=== PATIENT | female | born 1975 | race Caucasian/White ===

== ENCOUNTER 2022-12-02 14:31 | Emergency (ER) | payer MEDICAID, SELFPAY ==
[2022-12-02 14:32] VITALS: BP 148/94; PULSE 93; RESP 20; TEMP 36.7; O2SAT 99; BMI 17.2
--- NOTE | 2022-12-02 14:58 | EXP.UTC ---
Discharge Plan Disposition Patient Disposition: Still a Patient Prescriptions Prescriptions: No Action venlafaxine 75 MG Cap.Er.24h 75 mg PO DAILY cephalexin 500 MG capsule 500 mg PO QID Qty: 40 0RF Referrals Follow up/Referrals: Provider,Referral, [Primary Care Provider] - See instructions Instructions Patient Instructions: DI for Urinary Tract Infection (UTI), DI for Urinary Tract Infection in Children Discharge ED Provider: Nicole Garces [facility] HPI <Becky Stewart APRN - Last Filed: 12/02/22 15:43> General Chief complaint: Urogenital-Female Stated complaint: upset stomach, urine smell, weakness Mode of Arrival: Ambulatory Source of Information: Patient Limitations: No Limitations Time Seen by Provider: 12/02/22 14:58 Description of Symptoms (Recalled from Triage Doc. by RN): Patient states she has had an upset stomach for 3 days now, terrible odor in her vaginal area (thinks she may have left a tampon in for a month now), also states she is worried about a parasitic infection for a few months. HEENT Symptoms (Recalled from RN notes): No Resp Symptoms (Recalled from RN notes): No Skin Symptoms (Recalled from RN notes): No MS Symptoms (Recalled from RN notes): No Functional Status (Recalled from RN notes): wnl History of Present Illness Provider Complaint: Patient states that she has been having pain and swelling in her lower abdomen States she is not sure but thinks she may have a retained tampon from her period last month, a sex toy or magnet that she stuck in her vagina, States that she tried to feel for it and felt something but when she tried to pull it it felt like it was attached to her body States that her vagina has a odor that smells like something is rotting up in there and feels like she can feel something when she presses on her lower abdomen States that she also feels like she may have a parasitic infection for a couple of months, States that she is is the coyne a lot and feels like bug may be crawling in her and on her States that she did start her period today and has cramps at times but this doesn't feel like that this hurts and her discharge and smell is worse today. States that she has had severe infection before from IV drug use and worried it may be in her blood again States that she has been feeling weak, having nausea and at times feels like she gets short of breath Related Data Home Medications Medication Instructions Recorded Confirmed venlafaxine 75 mg capsule,extended 75 mg PO DAILY Depression 09/19/17 09/19/17 release 24 hr Previous Rx's Medication Instructions Recorded cephalexin 500 mg capsule 500 mg PO QID #40 caps 09/19/17 Allergies Allergy/AdvReac Type Severity Reaction Status Date / Time No Known Allergies Allergy Verified 09/19/17 21:02 Worker's Comp Is this a Worker's Comp case?: No PFSH <Becky Stewart APRN - Last Filed: 12/02/22 15:43> PFSH Disclaimer: The information contained in this section may have been updated after the patient was seen, as this information can be updated by other users. Social History (Updated 12/02/22 @ 15:43 by Becky Stewart APRN) Smoking Status: Current every day smoker alcohol intake: current current occupational status: unemployed Travel in the last 8 weeks: None <Becky Stewart APRN - Last Filed: 12/02/22 15:43> ROS Obtained: Yes All systems reviewed & no additional complaints except as documented and Yes Systems reviewed as appropriate & no additional complaints except as documented Constitutional Constitutional: Reports system reviewed and no additional complaints, except as documented, Reports as per HPI, Reports fatigue, Reports lethargy and Reports weakness ENT Ears, Nose, Mouth, and Throat: Reports system reviewed and no additional complaints, except as documented and Reports as per HPI Cardiovascular Cardiovascular: Reports system reviewed and no additional complaints, except as documented and Rep
--- NOTE | 2022-12-02 15:08 | PC.NURSE ---
pt came to ed from [facility]
[2022-12-02 15:10] LABS: Microscopic, Urine URINE MICROSCOPIC (MICROSCOPIC)
[2022-12-02 15:13] VITALS: BP 118/75; PULSE 89; O2SAT 100
[2022-12-02 15:18] LABS: Appearance,Urine CLOUDY (Clear); Blood, Urine 3+ (Negative); Color,Urine RED (Yellow); Glucose,Urine (UA) TRACE (Negative); Ketones,Urine TRACE (Negative); Leukocyte Esterase,Urine TRACE (Negative); Nitrate,Urine POSITIVE (Negative); Protein,Urine 2+ (Negative); Specific Gravity, Urine 1.025 (1.005-1.030)
[2022-12-02 15:23] VITALS: BP 118/75; PULSE 95; RESP 20; TEMP 36.9; O2SAT 100; BMI 17.2
[2022-12-02 15:30] VITALS: BP 111/68; PULSE 78; O2SAT 100
[2022-12-02 15:36] LABS: Urine Pregnancy, HCG Qual. Negative (Negative)
--- NOTE | 2022-12-02 15:49 | HMH.EDGENADL ---
Discharge Plan Disposition Patient Disposition: Home, Self-Care Condition: Good Prescriptions Prescriptions: New doxycycline hyclate 100 mg capsule 100 mg PO BID 10 Days Qty: 20 0RF metronidazole 500 mg tablet 500 mg PO BID 10 Days Qty: 20 0RF nitrofurantoin monohyd/m-cryst [Macrobid] 100 mg capsule 100 mg PO BID 5 Days Qty: 10 0RF Rx Instructions: must administer with a meal/food No Action venlafaxine 75 MG capsule,extended release 24hr 75 mg PO DAILY cephalexin 500 MG capsule 500 mg PO QID Qty: 40 0RF Referrals Follow up/Referrals: Provider,Referral, [Primary Care Provider] - See instructions Activity Restrictions/Add. Instructions Additional Instructions/Restrictions: You were evaluated in the emergency department today. At this time, your sexually-transmitted infection testing is pending. I advise that you filler picker your prescriptions and take the full course of antibiotics as prescribed. Do not have sexual intercourse until both you and all of your sexual partners have completed treatment. Follow-up with your primary care provider over the next 3 days. Return to the emergency department for any new or worsening symptoms. Clinical Impressions Clinical Impression: Vaginal odor, UTI (urinary tract infection) Instructions Patient Instructions: Facts About Sexually Transmitted Infections, How to Detect and Treat STDs Discharge ED Provider: Nicole Garces [facility] HPI General Chief complaint: Urogenital-Female Stated complaint: upset stomach, urine smell, weakness Time Seen by Provider: 12/02/22 14:58 Mode of Arrival: Ambulatory Source of Information: Patient Limitations: No Limitations Description of Symptoms (Recalled from ER Triage Doc. by RN): pt to ed c/o potential vaginal foreign body. pt states she has been experiencing an odor vaginally. pt states she is unsure if she has a foreign body lodged. pt states she is concerned for STI. pt reports a hx of hepatitis c. History of Present Illness HPI narrative: This patient is a 47-year-old female with a history of IV drug use with last methamphetamine use yesterday presenting to the emergency department for evaluation with concern for foul smelling vaginal odor. She states she is currently on her menstrual period. She states that she is not sure if she left something up there, like a tampon, a sex toy, or magnet. She does not remember putting anything up there. She reports sex with multiple partners, unprotected. She has not been recently tested for any sexually transmitted infections and states that it is possible. She also notes she does have a history of hepatitis C. She has a history of tubal. She denies any fevers, chills, dysuria, urinary frequency, urgency, nausea, vomiting, changes in bowel movements, or other concerns. Related Data Home Medications Medication Instructions Recorded Confirmed venlafaxine 75 mg capsule,extended 75 mg PO DAILY Depression 09/19/17 09/19/17 release 24 hr Previous Rx's Medication Instructions Recorded cephalexin 500 mg capsule 500 mg PO QID #40 caps 09/19/17 doxycycline hyclate 100 mg capsule 100 mg PO BID 10 days #20 caps 12/02/22 metronidazole 500 mg tablet 500 mg PO BID 10 days #20 tabs 12/02/22 nitrofurantoin 100 mg PO BID 5 days #10 caps 12/02/22 monohydrate/macrocrystals 100 mg capsule (Macrobid) Allergies Allergy/AdvReac Type Severity Reaction Status Date / Time No Known Allergies Allergy Verified 09/19/17 21:02 [facility] Disclaimer: The information contained in this section may have been updated after the patient was seen, as this information can be updated by other users. Social History Smoking Status: Current every day smoker alcohol intake: current current occupational status: unemployed Travel in the last 8 weeks: None ROS Obtained: Yes All systems reviewed & no additional
[2022-12-02 15:54] LABS: Bilirubin,Urine 1+ (Negative)
[2022-12-02 15:57] LABS: Bacteria,Urine Trace /lpf; RBC,Urine TNTC #/hpf (0-3); Squamous Epithelial Cell,Urine Occasional #/hpf (0-5)
[2022-12-02 16:13] VITALS: BP 117/87; PULSE 80; RESP 20; TEMP 36.8; O2SAT 97
[2022-12-04 22:08] LABS: Neisseria gonorrhoeae, NAA Negative (Negative)
== END 2022-12-02 16:15 | disposition home or self-care (01) ==
LOC: UTC 14:34 → ER 15:11
PROVIDERS: Nurse Practitioner; Emergency Provider Emergency Medicine
DX: N39.0 Urinary tract infection, site not specified (principal); F17.200 Nicotine dependence, unspecified, uncomplicated; F19.90 Other psychoactive substance use, unspecified, uncomplicated
CPT/HCPCS: 81001; 81025; 87491; 87591; 99283; J0696